=== PATIENT | female | born 1945 | race African-American/Black ===

== ENCOUNTER 2019-11-18 20:14 | Inpatient (IN) | payer MEDICARE, OTHER ==
[~2019-11-18] VITALS: Ht 170.2 cm; Wt 86.2 kg
--- NOTE | 2019-11-18 20:41 | NUR ---
Patient taken to CT at this time.
[2019-11-18] MEDS ORDERED: CRAN425C6 PO (20:44)
[2019-11-18] MEDS ORDERED: FAMO40TA71 PO (20:44)
[2019-11-18] MEDS ORDERED: ACET325C7 PO (20:44)
[2019-11-18] MEDS ORDERED: RIVA3CAP17 PO (20:44)
[2019-11-18] MEDS ORDERED: METO25TA6 PO (20:44)
[2019-11-18] MEDS ORDERED: DOCU-141 PO (20:44)
[2019-11-18] MEDS ORDERED: SENN-261 PO (20:44)
[2019-11-18] MEDS ORDERED: GABA100C PO (20:44)
[2019-11-18] MEDS ORDERED: MEMA5TAB PO (20:44)
[2019-11-18] MEDS ORDERED: CARB-95 PO (20:44)
[2019-11-18 20:52] LABS: BASOPHILS # (AUTO) 0.1 K/uL (0.0-8.0); BASOPHILS % (AUTO) 1.4 % (0.0-2.0); EOSINOPHILS # (AUTO) 0.1 K/uL (0.0-0.7); EOSINOPHILS % (AUTO) 0.9 % (0.0-7.0); HEMATOCRIT 40.9 % (31.2-41.9); HEMOGLOBIN 13.2 g/dL (10.9-14.3); LYMPHOCYTES # (AUTO) 3.2 K/uL (20.0-40.0); LYMPHOCYTES % (AUTO) 40.1 % (20.5-51.5); MEAN CORPUSCULAR HEMOGLOBIN 26.5 uug (24.7-32.8); MEAN CORPUSCULAR HGB CONC 32 g/dL (32.3-35.6); MEAN CORPUSCULAR VOLUME 81.8 fL (75.5-95.3); MONOCYTES # (AUTO) 0.8 K/uL (2.0-10.0); MONOCYTES % (AUTO) 10.3 % (0.0-11.0); NEUTROPHILS # (AUTO) 3.7 K/uL (1.8-8.9); NEUTROPHILS % (AUTO) 47.3 % (38.5-71.5); PLATELET COUNT (AUTO) 260 K/uL (179-408); WHITE BLOOD COUNT (AUTO) 7.9 K/uL (3.8-11.8)
--- NOTE | 2019-11-18 20:57 | NUR ---
Pt back from CT. No acute distress noted. VSS
[2019-11-18 21:05] LABS: ALANINE AMINOTRANSFERASE 11 U/L (14-59); ALKALINE PHOSPHATASE 87 U/L (50-136); ASPARTATE AMINOTRANSFERASE 21 U/L (15-37); BILIRUBIN,DIRECT 0.1 mg/dL (0.0-0.2); BILIRUBIN,TOTAL 0.2 mg/dL (0.2-1.0); CARBON DIOXIDE 28 mmol/L (21-32); CHLORIDE 98 mmol/L (98-107); CREATININE 0.8 mg/dL (0.6-1.3); GLUCOSE 194 mg/dL (74-106); POTASSIUM 4.9 mmol/L (3.5-5.1); TOTAL PROTEIN, SERUM 7.8 g/dL (6.4-8.2)
[2019-11-18 21:07] LABS: ACETAMINOPHEN < 2.0 ug/mL (10-30)
[2019-11-18 21:14] LABS: UREA NITROGEN, BLOOD 13 mg/dL (7-18)
[2019-11-18] MEDS ORDERED: ACETAMINOPHEN 650 MG/20.3 ML LIQUID UDC PO PRN (21:30)
[2019-11-18 21:37] LABS: ETHANOL < 3 MG/DL (0-0)
--- NOTE | 2019-11-18 21:39 | NUR ---
Pt. admitted to Telemetry , under care of Dr. Vickers Belongs List completed
[2019-11-18] MEDS ORDERED: MORPHINE SULFATE 2 MG/1 ML DISP.SYRIN IV PRN (21:45)
[2019-11-18] MEDS ORDERED: ONDANSETRON 4 MG/2 ML VIAL IV PRN (21:45)
[2019-11-18] MEDS ORDERED: DEXTROSE 50% 50 ML DISP.SYRIN IV PRN (21:45)
[2019-11-18 21:51] LABS: THYROID STIMULATING HORMONE 1.864 mIU/mL (0.358-3.740)
[2019-11-18 21:55] LABS: CREATINE KINASE, TOTAL 90 U/L (26-192)
--- NOTE | 2019-11-18 22:43 | NUR ---
patient received from ER. aaox1 and very confused. patient able to respond when asking questions but response is inappropriate at times and not related to questions. unable to verbalize what she needs. v/s stable. no s/s of acute distress noted. SR on tele monitor. RA. IV intact and patent. no belongings with patient from ER. ID band on. will continue to monitor and assess.
[2019-11-18 23:30] VITALS: BP 153/72
[2019-11-19 04:40] VITALS: BP 148/67
[2019-11-19 06:26] LABS: BASOPHILS % (AUTO) 0.6 % (0.0-2.0); EOSINOPHILS # (AUTO) 0.1 K/uL (0.0-0.7); EOSINOPHILS % (AUTO) 0.9 % (0.0-7.0); HEMATOCRIT 40.7 % (31.2-41.9); HEMOGLOBIN 13.2 g/dL (10.9-14.3); LYMPHOCYTES # (AUTO) 2.5 K/uL (20.0-40.0); LYMPHOCYTES % (AUTO) 34.6 % (20.5-51.5); MEAN CORPUSCULAR HEMOGLOBIN 26.7 uug (24.7-32.8); MEAN CORPUSCULAR HGB CONC 32 g/dL (32.3-35.6); MEAN CORPUSCULAR VOLUME 82.2 fL (75.5-95.3); MONOCYTES # (AUTO) 0.7 K/uL (2.0-10.0); MONOCYTES % (AUTO) 8.9 % (0.0-11.0); PLATELET COUNT (AUTO) 272 K/uL (179-408); RED BLOOD CELL COUNT(AUTO) 4.95 MIL/uL (3.63-4.92); WHITE BLOOD COUNT (AUTO) 7.3 K/uL (3.8-11.8)
[2019-11-19] MEDS: FAMOTIDINE 20 MG TABLET PO SCH (06:32)
[2019-11-19] MEDS: BLOOD SUGAR DIAGNOSTIC 1 EACH STRIP VI SCH ×4 (06:33→21:11)
[2019-11-19 07:14] LABS: BILIRUBIN,TOTAL 0.2 mg/dL (0.2-1.0); CREATININE 0.8 mg/dL (0.6-1.3); MAGNESIUM 1.9 mg/dL (1.8-2.4); POTASSIUM 4.5 mmol/L (3.5-5.1); TOTAL PROTEIN, SERUM 8.1 g/dL (6.4-8.2)
--- NOTE | 2019-11-19 07:30 | NUR ---
Received pt. in bed aaox1 vitals stable IV access patent left AKA elevated on a pillow area c.d.i.
[2019-11-19] MEDS: CARBIDOPA/LEVODOPA CR 25-100MG TABLET.SA PO SCH ×3 (08:13→16:58)
[2019-11-19] MEDS: DOCUSATE SODIUM 100 MG CAPSULE PO SCH (08:14)
[2019-11-19] MEDS: MEMANTINE HCL 5 MG TABLET PO SCH ×2 (08:14→16:58)
[2019-11-19 08:15] VITALS: BP 143/65
[2019-11-19] MEDS: RIVASTIGMINE TARTRATE 3 MG CAPSULE PO SCH ×2 (08:30→16:58)
[2019-11-19] MEDS: INSULIN REGULAR, HUMAN 300 UNIT/3 ML VIAL SQ PRN ×2 (11:32→16:59)
[2019-11-19 12:00] VITALS: BP 146/74
[2019-11-19 15:54] VITALS: BP 119/52
[2019-11-19] MEDS: GLIMEPIRIDE 2 MG TABLET PO SCH (16:58)
--- NOTE | 2019-11-19 20:00 | NUR ---
RECEIVED PATIENT AWAKE IN BED. ALERT TO SELF. DENIES PAIN OR DISCOMFORT. NO FACIAL GRIMACE NOTED. ON TELE SR. H/L INTACT AND PATENT. BED ALARM ON. ALL NEEDS ATTENDED. WILL CONTINUE TO MONITOR AND ASSESS.
[2019-11-19 20:49] VITALS: BP 159/63
[2019-11-19] MEDS: SIMVASTATIN 10 MG TABLET PO SCH (21:13)
[2019-11-19] MEDS: SENNOSIDES 1 TABLET PO SCH (21:13)
--- NOTE | 2019-11-19 23:00 | NUR ---
REPORT GIVEN TO RN FOR ASSIGNMENT CHANGE. ALL NEEDS ATTENDED.
--- NOTE | 2019-11-19 23:00 | NUR ---
SBAR report received from JOHNY Sepulveda for continuity of care.
--- NOTE | 2019-11-19 23:30 | NUR ---
Pt A/O x1-2 to self and immediate situation. NO distress noted. On RA without SOB. Pt denied any pain or discomfort. NO facial grimacing noted. Pt calm and pleasant. Noted SR on electronic device monitor. VS stable. Incontinent. Pt turned and repositioned. On BR. PIV to Right AC patent and intact. Call light and belongings within reach. All safety precautions in place. Pt care and monitoring continued.
[2019-11-20] VITALS: BP 140/62
[2019-11-20 01:02] LABS: *BILIRUBIN,URIN NEGATIVE (NEGATIVE); *BLOOD, URINE 1+ (NEGATIVE); *CLARITY,URINE CLEAR (CLEAR); *COLOR,URINE YELLOW (YELLOW); *KETONES,URINE NEGATIVE (NEGATIVE); *UROBILINOGEN,URINE 0.2 E.U./dl (NORMAL); LEUKOCYTE ESTERASE ,URINE NEGATIVE (NEGATIVE); NITRITE, URINE NEGATIVE (NEGATIVE); PH,URINE 5.5 (5.0-8.0); UGLUCOSE NEGATIVE (NEGATIVE)
[2019-11-20 02:27] LABS: BACTERIA,URINE NONE SEEN /HPF (NONE SEEN); WBC,URINE 0-3 /HPF (0-3)
[2019-11-20 04:43] VITALS: BP 134/72
--- NOTE | 2019-11-20 06:28 | NUR ---
Pt awake at this time. NO adverse events during shift. Pt denied any pain or discomfort. No change in pt status. Pt safety maintained during shift.
[2019-11-20] MEDS: FAMOTIDINE 20 MG TABLET PO SCH (06:53)
[2019-11-20] MEDS: BLOOD SUGAR DIAGNOSTIC 1 EACH STRIP VI SCH ×4 (06:58→21:44)
--- NOTE | 2019-11-20 08:00 | NUR ---
RECEIVED IN BED AWAKE ALERT VERBALLY RESPONDS WHEN SPOKEN TO BUT IS NOT MAKING NEEDS KNOWN ALL NEEDS ANTICIPATED AND SATISFIED.ASSISTED WITH REPOSITIONING Q2H NO S/S OF PAIN OR DISCOMFORTS AT THIS TIME MADE COMFORTABLE TELE WITH NO ECTOPY WILL CONTINUE TO OBSERVE
[2019-11-20] MEDS: INSULIN REGULAR, HUMAN 300 UNIT/3 ML VIAL SQ PRN ×2 (08:17→12:12)
[2019-11-20] MEDS: DOCUSATE SODIUM 100 MG CAPSULE PO SCH (08:19)
[2019-11-20] MEDS: MEMANTINE HCL 5 MG TABLET PO SCH ×2 (08:19→17:12)
[2019-11-20] MEDS: CARBIDOPA/LEVODOPA CR 25-100MG TABLET.SA PO SCH ×3 (08:19→17:12)
[2019-11-20] MEDS: GLIMEPIRIDE 2 MG TABLET PO SCH ×2 (08:19→17:12)
[2019-11-20] MEDS: RIVASTIGMINE TARTRATE 3 MG CAPSULE PO SCH ×2 (08:20→17:12)
[2019-11-20 12:42] VITALS: BP_SYST 114; BP_SYST 148; BP_DIAS 52; BP_DIAS 66
[2019-11-20 16:12] VITALS: BP 149/63
[2019-11-20 16:16] LABS: *OCCULT BLOOD STOOL NEGATIVE (NEGATIVE)
--- NOTE | 2019-11-20 17:40 | NUR ---
ALL DUE MEDS GIVEN AND TOLERATED WELL NO S/S OF HYPO/HYPERGLYCEMIC REACTIONS AT THIS TIME STOOL COLLECTED AND SENT TO THE LAB NOT IN DISTRESS AT THIS TIME.
--- NOTE | 2019-11-20 19:15 | NUR ---
SBAR report received from JOHNY Stovall for continuity of care.
--- NOTE | 2019-11-20 20:00 | NUR ---
Pt A/O x1-2 to self and immediate situation. NO distress noted. On RA without SOB. Pt denied any pain or discomfort. NO facial grimacing noted. Pt calm and pleasant. Tele monitor discontinued per MD order. VS stable. Incontinent. Pt turned and repositioned. On BR. Started PIV to Right FA 20 gauge, blood return noted, patent and intact. Call light and belongings within reach. All safety precautions in place. Pt care and monitoring continued.
[2019-11-20 20:20] VITALS: BP 139/59
[2019-11-20] MEDS: SENNOSIDES 1 TABLET PO SCH (21:33)
[2019-11-20] MEDS: SIMVASTATIN 10 MG TABLET PO SCH (21:33)
--- NOTE | 2019-11-20 23:45 | NUR ---
SBAR report given to JOHNY Skaggs for continuity of care.
[2019-11-21 00:45] VITALS: BP 135/55
[2019-11-21 05:28] VITALS: BP 152/78
--- NOTE | 2019-11-21 05:54 | NUR ---
slept at long intervals.
[2019-11-21] MEDS: FAMOTIDINE 20 MG TABLET PO SCH (06:07)
[2019-11-21] MEDS: BLOOD SUGAR DIAGNOSTIC 1 EACH STRIP VI SCH ×2 (06:08→11:37)
[2019-11-21] MEDS: MEMANTINE HCL 5 MG TABLET PO SCH (08:08)
[2019-11-21] MEDS: RIVASTIGMINE TARTRATE 3 MG CAPSULE PO SCH (08:08)
[2019-11-21] MEDS: GLIMEPIRIDE 2 MG TABLET PO SCH (08:08)
[2019-11-21] MEDS: DOCUSATE SODIUM 100 MG CAPSULE PO SCH (08:08)
[2019-11-21] MEDS: CARBIDOPA/LEVODOPA CR 25-100MG TABLET.SA PO SCH ×2 (08:08→12:10)
[2019-11-21] MEDS: INSULIN REGULAR, HUMAN 300 UNIT/3 ML VIAL SQ PRN ×2 (08:16→12:10)
--- NOTE | 2019-11-21 09:29 | NUR ---
RECEIVED REPORT FROM THREADING MACHINE TENDER. PATIENT AAOx2. ON RA, NO S/S OF SOB NOTED AT THIS TIME. IV ON R FA 20G FLUSHING AND PATENT. NOTED LEFT AKA, INTACT. BED LOCKED, IN LOWEST POSITION. CALL LIGHT WITHIN REACH. WILL CONTINUE TO MONITOR.
[2019-11-21 11:30] VITALS: BP 138/70
[2019-11-21] MEDS ORDERED: LISINOPRIL 5 MG TABLET PO SCH (12:45)
[2019-11-21 13:13] VITALS: BP 138/70
[2019-11-21] MEDS ORDERED: CARB-93 PO (13:47)
[2019-11-21] MEDS ORDERED: FERR325T28 PO (14:14)
[2019-11-21] MEDS ORDERED: SIMV10TA98 PO (14:14)
[2019-11-21] MEDS ORDERED: LISI-607 PO (14:14)
[2019-11-21] MEDS ORDERED: GABA100C PO (14:14)
[2019-11-21] MEDS ORDERED: ASPI81TA31 PO (14:14)
[2019-11-21] MEDS ORDERED: GLIM2TAB PO (14:14)
--- NOTE | 2019-11-21 15:54 | NUR ---
PATIENT DISCHARGED VIA GURNEY. AAOX2-3, FORGETFUL. ON RA, NO S/S OF SOB OR DISTRESS AT THIS TIME. REMOVED IV, NO BLEEDING NOTED. ID BAND REMOVED. D/C INSTRUCTIONS GIVEN TO AMBULANCE PERSONNEL. REPORT GIVEN TO JOHNY MOTT FROM [facility].
[2019-11-21] MEDS ORDERED: CARBIDOPA/LEVODOPA 25-100MG TABLET PO SCH (17:00)
[2019-11-22] MEDS ORDERED: ASPIRIN 81 MG TAB.CHEW PO SCH (09:00)
[2019-11-22] MEDS ORDERED: FERROUS SULFATE 325 MG TABEC PO SCH (11:00)
== END 2019-11-21 16:00 | DRG 69 ==
LOC: ER 20:17 → TELE3 22:44 → MEDSURG3 11-20 20:36
PROVIDERS: ADMIT Internal Medicine; ATTEND Internal Medicine
DX: G45.9 Transient cerebral ischemic attack, unspecified (principal); G93.41 Metabolic encephalopathy; D68.69 Other thrombophilia; E87.2 Acidosis; E66.9 Obesity, unspecified; E61.1 Iron deficiency; E11.65 Type 2 diabetes mellitus with hyperglycemia; E11.43 Type 2 diabetes mellitus with diabetic autonomic (poly)neuropathy; F02.80 Dementia in other diseases classified elsewhere, unspecified severity, without behavioral disturbance, psychotic disturbance, mood disturbance, and anxiety; G31.83 Neurocognitive disorder with Lewy bodies; I11.9 Hypertensive heart disease without heart failure; Z87.440 Personal history of urinary (tract) infections; Z89.512 Acquired absence of left leg below knee; Z79.84 Long term (current) use of oral hypoglycemic drugs; Z68.29 Body mass index [BMI] 29.0-29.9, adult; G31.9 Degenerative disease of nervous system, unspecified; R40.2362 Coma scale, best motor response, obeys commands, at arrival to emergency department; R40.2142 Coma scale, eyes open, spontaneous, at arrival to emergency department; R40.2252 Coma scale, best verbal response, oriented, at arrival to emergency department
CPT/HCPCS: 36415; 70030-TC; 70450; 71045; 82652; 83550; 83605; 83735; 84100; 84443; 85025; 87040; 87086; 93005; C1758; G0378; G0480; G0480-TC; J1815